=== PATIENT | male | born 1970 | race Caucasian/White ===

== ENCOUNTER 2023-12-22 09:11 | Day surgery (SDC) | payer OTHER ==
[~2023-12-22] VITALS: Ht 175.3 cm; Wt 108.6 kg
[~2023-12-22 09:11] MED LIST: LR 1,000 ML IV SCH; Ondansetron 4 MG/2 ML VIAL IV PRN
[2023-12-22] MEDS ORDERED: PRINIVIL10 MG PO (10:31)
[2023-12-22] MEDS ORDERED: ALLEGRA 180MG180 MG PO (10:32)
[2023-12-22] MEDS ORDERED: FISH OIL1000 MG PO (10:32)
[2023-12-22] MEDS ORDERED: Lidocaine PF 2% (20 MG/ML) 5 ML VIAL ONE (11:23)
[2023-12-22 11:55] VITALS: BP 109/77; PULSE 62; TEMP 97.3
--- NOTE | 2023-12-22 12:47 | NUR ---
1155- PT RETURNS FROM ENDO PROCEDURE VIA CART AND RN ASSIST TO [facility] 8. PT AMBULATES FROM CART TO RECLINER WITH ASSIST. MONITORS ON AND ALARMS SET. CALL LIGHT WITHIN REACH. REPORT RECEIVED FROM TRICIA DELEON. PT ALERT AND ORIENTED. PT REQUESTS DRINK. PT DENIES ANY PAIN OR NAUSEA. 1200- PT TAKING FOOD AND DRINK WELL. NO COMPLICATIONS NOTED. 1240- DISCHARGE INSTRUCITONS GIVEN TO PT. ALL QUESTIONS ANSWERED. 1245- PT TRANSFERRED OUT OF THE HOSPITAL VIA WHEELCHAIR TAKEN OUT BY AID.
[2023-12-22 16:08] VITALS: BP 114/81; PULSE 70; TEMP 98.2
== END 2023-12-22 12:45 | disposition home or self-care (01) ==
LOC: SDCO 09:11
DX: K29.70 Gastritis, unspecified, without bleeding (principal); Z12.11 Encounter for screening for malignant neoplasm of colon; Z79.899 Other long term (current) drug therapy
CPT/HCPCS: J2704; J7120